=== PATIENT | female | born 1995 | race Caucasian/White ===

== ENCOUNTER 2024-10-26 13:03 | Emergency (ER) | payer OTHER, MEDICARE, SELFPAY ==
[2024-10-26 13:06] VITALS: BP 116/73
--- NOTE | 2024-10-26 13:28 | ED.GENMED ---
History of Present Illness
General
Chief Complaint: Head Injury
Time Seen by Provider: 10/26/24 13:28
History of Present Illness
History of Present Illness:
TIME OF INITIAL ENCOUNTER: 1:35 PM
HPI: The patient fell skateboarding on September 13. She denies head injury at that time but noted head pain and some neurologic symptoms thinking that the 'jolt' of the injury affected her. She was also struck by a dodgeball earlier this week and
had third head injury while skateboarding. She has been having headaches, nausea, and photophobia. She went to urgent care and they told her to come here as there was some concern for unilateral weakness.
EXAM:
GENERAL: Well appearing but appears somewhat uncomfortable and somewhat of a flat affect
CERVICAL SPINE: No midline c-spine tenderness with excellent AROM
HEAD: No evidence of craniofacial trauma
CHEST: No chest wall tenderness, normal heart sounds
LUNGS: Equal lung sounds, no respiratory distress
ABDOMEN: No abdominal tenderness, no peritoneal signs
EXTREMITIES: Normal active range of motion, no tenderness
NEURO: Excellent strength all extremities, appropriate mental status, normal speech/language
NUMBER AND COMPLEXITY OF PROBLEMS ADDRESSED AT THE ENCOUNTER
� Chronic conditions affecting care: Bipolar, OCD, schizophrenia
� Acute Exacerbation and/or Progression of Chronic Illness: This is an acute problem
� Differential Diagnosis includes: Minor head injury, concussion, intracranial hemorrhage
AMOUNT AND/OR COMPLEXITY OF DATA TO BE REVIEWED AND ANALYZED
� I performed an independent evaluation of and my interpretation is:
EKG:
CT: I personally reviewed CT imaging of the brain and I agree with radiologist interpretation that there is no acute abnormality
X-rays:
Laboratory Studies:
Other:
� Review of other/old records: No old records available for review
� Clinical information was obtained by an independent historian: I spoke to boyfriend at bedside
� Prescriptions/Medications Considered but not given: Declines analgesia/antiemetic
� Further testing considered but not performed:
RISK OF COMPLICATIONS AND/OR MORBIDITY OR MORTALITY OF PATIENT MANAGEMENT
� Social determinants of health affecting care: Lives at home
� Discussion with other providers:
� Escalation of care including admission/observation vs risk of discharge considered: More strongly favor a diagnosis of concussion however the patient does have ongoing headaches, nausea, and photophobia with recurring head
injury. CT imaging therefore obtained.
ANY OTHER UPDATES:
2:15 PM: I reassessed patient. No clinical changes. She declined analgesia. Strongly recommended cognitive rest/physical rest.
Phy Exam
Physical Exam
Physical Exam:
See HPI
Course
Orders/Labs/Results
Orders:
Orders
10/26/24 13:35
CT Head W/o Iv Contrast Urgent
Comment:
Reason For Exam: recurrent head injury; HAs, nausea
Vital Signs
Initial and Last Documented VS:
Initial Vital Signs
Temp Pulse Resp BP Pulse Ox
36.7 C 98 16 116/73 100
10/26/24 13:06 10/26/24 13:06 10/26/24 13:06 10/26/24 13:06 10/26/24 13:06
Last Documented Vital Signs
Temp Pulse Resp BP Pulse Ox
36.7 C 98 16 116/73 100
10/26/24 13:06 10/26/24 13:06 10/26/24 13:06 10/26/24 13:06 10/26/24 13:06
*Critical Care Note
Total Time (30-74mins, 75-104mins- exclusive of procedures): Not Applicable
ED Attending Note
-
Portions of this chart may have been created with voice recognition software.� Occasional wrong word or��sound alike� substitutions may have occurred due to the inherent limitations of voice recognition software.
Discharge Plan
Departure
Patient Disposition: Home (Routine Discharge)
Date of Disposition: 10/26/24
Time of Disposition: 14:12
Patient with high blood pressure during this ER visit?: Yes
Discharge Problem:
Concussion
Instructions: Concussion, Adult (DC)
Referrals:
Meggan Leone, [Family Provider] -
Activity Restrictions/Additional Instructions:
The CAT scan of the brain shows no bleeding. Based on your symptoms, you likely have a concussion. I recommend no vigorous sports activities and no skateboarding until all symptoms have resolved. Follow-up your primary care doctor.
Interventions
Interventions:
*Risk Screen - Suicide Last Done: 10/26/24 13:06
*General Assessment Last Done: 10/26/24 13:06
*ED COVID-19 Vaccine History Last Done: 10/26/24 13:06
Discharge Date and Time
Print Language: [place]
[2024-10-26 15:11] VITALS: BP 102/58
== END 2024-10-26 15:13 | disposition home or self-care (01) ==
LOC: EMR 13:03
PROVIDERS: EMERGENCY PHYSICIAN Emergency Medicine; FAMILY PHYSICIAN Family Medicine
DX: S06.0XAA Concussion with loss of consciousness status unknown, initial encounter (principal); W21.09XA Struck by other hit or thrown ball, initial encounter
CPT/HCPCS: 99284; 70450

== ENCOUNTER → 2025-06-18 14:17 | Outpatient (REF) | payer MEDICARE, OTHER, SELFPAY | LOC: WDC 14:17 | PROVIDERS: ATTENDING PHYSICIAN Internal Medicine | DX: N63.21 Unspecified lump in the left breast, upper outer quadrant (principal) | CPT/HCPCS: 76642 ==